=== PATIENT | female | born 1945 | race Caucasian/White ===

== ENCOUNTER → 2017-04-09 | Outpatient (CLI) | payer MEDICARE, OTHER | END | disposition home or self-care (01) | LOC: HKI 14:20 | DX: M17.0 Bilateral primary osteoarthritis of knee (principal); E78.00 Pure hypercholesterolemia, unspecified | CPT/HCPCS: G0463 ==

== ENCOUNTER → 2017-05-07 | Outpatient (CLI) | payer MEDICARE, OTHER | END | disposition home or self-care (01) | LOC: HKI 14:10 | DX: M17.11 Unilateral primary osteoarthritis, right knee (principal) ==

== ENCOUNTER → 2017-06-18 | Outpatient (CLI) | payer MEDICARE, OTHER | END | disposition home or self-care (01) | LOC: HKI 12:45 | DX: Z01.818 Encounter for other preprocedural examination (principal) | CPT/HCPCS: G0463 ==

== ENCOUNTER 2017-06-22 09:06 | Inpatient (IN) | payer MEDICARE, OTHER ==
[2017-06-22] MEDS: CEFAZOLIN 2 GM/50 ML (PMX) 50 ML IVPB (06:00)
[2017-06-22] MEDS: TRANEXAMIC ACID 1,000 MG in D5W 100 ML AT CLOSURE X1 IVPB (08:00)
[~2017-06-22 09:06] MED LIST: PROPOFOL 1000 MG INJ
[2017-06-22] MEDS: LANSOPRAZOLE 30 MG CAP PO (10:17)
[2017-06-22] MEDS: ONDANSETRON 4 MG INJ IV ×3 (10:17→22:49)
[2017-06-22] MEDS: DEXAMETHASONE 4 MG/ML 1 ML INJ IV (10:18)
[2017-06-22] MEDS: ACETAMINOPHEN 1000MG/100ML IV 100 ML IVPB (10:26)
[2017-06-22] MEDS ORDERED: ONDANSETRON 4 MG INJ (11:47)
[2017-06-22] MEDS ORDERED: PROPOFOL 20 ML (11:47)
[2017-06-22] MEDS ORDERED: NEOSTIGMINE 3 MG/3 ML SYRINGE (11:47)
[2017-06-22] MEDS ORDERED: MIDAZOLAM 1 MG/ML 2 ML INJ (11:47)
[2017-06-22] MEDS ORDERED: GLYCOPYRROLATE 0.4 MG INJ (11:47)
[2017-06-22] MEDS ORDERED: FENTAnyl 50 MCG/ML VIAL (11:47)
[2017-06-22] MEDS ORDERED: CEFAZOLIN 1 GM INJ (11:47)
[2017-06-22] MEDS ORDERED: ROCURONIUM 50 MG INJ (11:47)
[2017-06-22] MEDS ORDERED: DEXAMETHASONE 4 MG/ML 1 ML INJ (11:48)
[2017-06-22] MEDS ORDERED: morphine SULFATE/PF (10 MG/10 ML) INJ (13:25)
[2017-06-22] MEDS: TRANEXAMIC ACID 1,000 MG in D5W 100 ML AT INCISION X1 IVPB (13:57)
[2017-06-22] MEDS: BACITRACIN 50000 UNITS INJ (14:12)
[2017-06-22] MEDS: POLYMYXIN B 500000 UNIT INJ (14:15)
[2017-06-22] MEDS ORDERED: NA PHOSPHATE/BIPHOS 133 ML ENEMA PR (17:00)
[2017-06-22] MEDS ORDERED: oxyCODONE 5 MG TAB PO ×2 (17:00)
[2017-06-22] MEDS ORDERED: TRIMETHOBENZAMIDE 100 MG/ML VIAL IM (17:00)
[2017-06-22] MEDS ORDERED: ZOLPIDEM 5 MG TAB PO (17:00)
[2017-06-22] MEDS ORDERED: NALOXONE (0.4 MG/ML) INJ IV (17:00)
[2017-06-22] MEDS: CEFAZOLIN 1 GM/50 ML (PMX) 50 ML IVPB (17:22)
[2017-06-22] MEDS: ASPIRIN (EC) 325 MG TAB PO (17:23)
[2017-06-22] MEDS: DOCUSATE SODIUM 100 MG CAP PO (17:23)
[2017-06-22] MEDS: SOD CHLORIDE 0.9% 1,000 ML IV (17:27)
[2017-06-22] MEDS: DIPHENHYDRAMINE 50 MG INJ IV (20:10)
[2017-06-22] MEDS: GABAPENTIN 100 MG CAP PO (20:47)
[2017-06-22] MEDS: AMLODIPINE 5 MG TAB PO (20:48)
[2017-06-22] MEDS: CELECOXIB 100 MG CAP PO (21:00)
[2017-06-22] MEDS: EZETIMIBE 10 MG TAB PO (22:49)
[2017-06-22] MEDS: ROSUVASTATIN CALCIUM 40 MG TABLET PO (22:49)
[2017-06-23] MEDS: CEFAZOLIN 1 GM/50 ML (PMX) 50 ML IVPB ×2 (00:40→09:12)
[2017-06-23] MEDS: ONDANSETRON 4 MG INJ IV ×2 (04:40→11:00)
[2017-06-23] MEDS: SOD CHLORIDE 0.9% 1,000 ML IV ×2 (04:41→17:32)
[2017-06-23 05:32] LABS: ADD UMIC NO; UR ASCORBIC ACID NEGATIVE (NEGATIVE); UR BILIRUBIN (Dip) NEGATIVE (NEGATIVE); UR BLOOD (Dip) NEGATIVE (NEGATIVE); UR CLARITY CLEAR (CLEAR); UR COLOR STRAW (YELLOW); UR GLUCOSE (Dip) NEGATIVE (NEGATIVE); UR KETONES (Dip) TRACE mg/dL (NEGATIVE); UR LEUKOCYTE ESTERASE (Dip) NEGATIVE Leu/ul (NEGATIVE); UR NITRITE (Dip) NEGATIVE (NEGATIVE); UR SPECIFIC GRAVITY (Dip) 1.011 (1.003-1.030); UR TOTAL PROTEIN (Dip) NEGATIVE (NEGATIVE); UR UROBILINOGEN (Dip) NEGATIVE (NEGATIVE)
[2017-06-23 05:51] LABS: ADD MAN DIFF? NO
[2017-06-23 05:55] LABS: WHITE BLOOD COUNT 9.1 10^3/ul (4.8-10.8)
[2017-06-23 05:55] LABS: BASOPHILS % 0.1 % (0.0-2.0); HEMATOCRIT 35.2 % (37.0-47.0); HEMOGLOBIN 11.7 g/dl (12.0-16.0); LYMPHOCYTES # 0.6 10^3/ul (0.8-2.9); MEAN CORPUSCULAR HEMOGLOBIN 32.1 pg (29.0-33.0); MEAN CORPUSCULAR HGB CONC 33.2 g/dl (32.0-37.0); MEAN CORPUSCULAR VOLUME 96.4 fl (82.0-101.0); MEAN PLATELET VOLUME 9.6 fl (7.4-10.4); MONOCYTE # 0.5 10^3/ul (0.3-0.9); MONOCYTES % 5.4 % (0.0-11.0); NEUTROPHIL # 7.9 10^3/ul (1.6-7.5); NEUTROPHILS % 87.1 % (39.0-77.0); PLATELET COUNT 273 10^3/UL (140-415); RED BLOOD COUNT 3.65 10^6/ul (4.20-5.40); RED CELL DISTRIBUTION WIDTH 12.5 % (11.5-14.5)
[2017-06-23] MEDS: PANTOPRAZOLE (EC) 40 MG TAB PO (06:00)
[2017-06-23 06:37] LABS: ANION GAP 18 (8-16); BLOOD UREA NITROGEN 14 mg/dl (7-20); CALCIUM 8.8 mg/dl (8.4-10.2); CARBON DIOXIDE 21 mmol/L (21-31); CHLORIDE 107 mmol/L (97-110); CREATININE 0.62 mg/dl (0.44-1.00); GLUCOSE 110 mg/dl (70-220); POTASSIUM 3.8 mmol/L (3.5-5.1); SODIUM 142 mmol/L (135-144)
[2017-06-23] MEDS: FERROUS FUMARATE (SR) TAB PO ×2 (09:12→20:34)
[2017-06-23] MEDS: GABAPENTIN 100 MG CAP PO ×2 (09:12→20:36)
[2017-06-23] MEDS: DOCUSATE SODIUM 100 MG CAP PO ×2 (09:12→20:34)
[2017-06-23] MEDS: BETHANECHOL 25 MG TAB PO (09:12)
[2017-06-23] MEDS: ASPIRIN (EC) 325 MG TAB PO (09:13)
[2017-06-23] MEDS: CELECOXIB 100 MG CAP PO ×2 (09:13→20:36)
[2017-06-23] MEDS: oxyCODONE 5 MG TAB PO ×4 (15:55→23:50)
[2017-06-23] MEDS: KETOROLAC 15 MG INJ IV (17:10)
[2017-06-23] MEDS: AMLODIPINE 5 MG TAB PO (20:36)
[2017-06-23] MEDS: ROSUVASTATIN CALCIUM 40 MG TABLET PO (22:26)
[2017-06-23] MEDS: EZETIMIBE 10 MG TAB PO (22:27)
[2017-06-24] MEDS: oxyCODONE 5 MG TAB PO ×2 (04:46→08:57)
[2017-06-24 05:18] LABS: ADD MAN DIFF? NO
[2017-06-24 05:20] LABS: BASOPHILS % 0.1 % (0.0-2.0); HEMATOCRIT 32.6 % (37.0-47.0); HEMOGLOBIN 10.8 g/dl (12.0-16.0); LYMPHOCYTES # 2.3 10^3/ul (0.8-2.9); LYMPHOCYTES % 27.2 % (15.0-51.0); MEAN CORPUSCULAR HEMOGLOBIN 32.1 pg (29.0-33.0); MEAN CORPUSCULAR HGB CONC 33.1 g/dl (32.0-37.0); MEAN PLATELET VOLUME 9.3 fl (7.4-10.4); MONOCYTE # 1.3 10^3/ul (0.3-0.9); MONOCYTES % 15.3 % (0.0-11.0); NEUTROPHIL # 4.8 10^3/ul (1.6-7.5); NEUTROPHILS % 56.9 % (39.0-77.0); PLATELET COUNT 259 10^3/UL (140-415); RED BLOOD COUNT 3.36 10^6/ul (4.20-5.40); RED CELL DISTRIBUTION WIDTH 13.1 % (11.5-14.5)
[2017-06-24 05:20] LABS: WHITE BLOOD COUNT 8.4 10^3/ul (4.8-10.8)
[2017-06-24 05:41] LABS: ANION GAP 14 (8-16); BLOOD UREA NITROGEN 18 mg/dl (7-20); CALCIUM 8.6 mg/dl (8.4-10.2); CARBON DIOXIDE 28 mmol/L (21-31); CHLORIDE 107 mmol/L (97-110); CREATININE 0.72 mg/dl (0.44-1.00); GLUCOSE 110 mg/dl (70-220); POTASSIUM 4.3 mmol/L (3.5-5.1); SODIUM 145 mmol/L (135-144)
[2017-06-24] MEDS ORDERED: PANTOPRAZOLE (EC) 40 MG TAB PO (06:00)
[2017-06-24] MEDS: PANTOPRAZOLE (EC) 40 MG TAB PO (06:00)
[2017-06-24] MEDS: SOD CHLORIDE 0.9% 1,000 ML IV (06:02)
[2017-06-24] MEDS: FERROUS FUMARATE (SR) TAB PO (08:58)
[2017-06-24] MEDS: ASPIRIN (EC) 325 MG TAB PO (08:58)
[2017-06-24] MEDS: CELECOXIB 100 MG CAP PO (08:58)
[2017-06-24] MEDS: MAGNESIUM HYDROXIDE 30ML CUP PO (08:58)
[2017-06-24] MEDS: DOCUSATE SODIUM 100 MG CAP PO (08:58)
[2017-06-24] MEDS: GABAPENTIN 100 MG CAP PO (08:58)
[2017-06-24] MEDS: KETOROLAC 15 MG INJ IV (08:59)
[2017-06-24] MEDS: HYDROCODONE/APAP (10/325) TAB PO ×2 (11:35→17:01)
[2017-06-24] MEDS: BISACODYL 10 MG SUPP PR (12:04)
[2017-06-24] MEDS: SENNA/DOCUSATE NA (8.6MG/50MG) TAB PO (14:49)
== END 2017-06-24 18:10 | disposition home health service (06) | DRG 462 ==
LOC: REC 09:06 → MS1 18:05
PROC: 0SRD0L9 Replacement of Left Knee Joint with Medial Unicondylar Synthetic Substitute, Cemented, Open Approach (ICD-10-PCS; principal; 2017-06-22 12:30)
PROC: 0SRC0L9 Replacement of Right Knee Joint with Medial Unicondylar Synthetic Substitute, Cemented, Open Approach (ICD-10-PCS; 2017-06-22 12:30)
DX: M17.0 Bilateral primary osteoarthritis of knee (principal); K51.90 Ulcerative colitis, unspecified, without complications; I10 Essential (primary) hypertension; E78.5 Hyperlipidemia, unspecified; K21.9 Gastro-esophageal reflux disease without esophagitis; E66.9 Obesity, unspecified; Z68.23 Body mass index [BMI] 23.0-23.9, adult
CPT/HCPCS: 80048; 81003; 85025; 86850; 86900; 86901; 87081; 87086; 88304; 88311; 97110; 97116; 97162; 97165; 97530; 97535

== ENCOUNTER → 2017-07-09 | Outpatient (CLI) | payer MEDICARE, OTHER | END | disposition home or self-care (01) | LOC: HKI 14:33 | DX: Z09 Encounter for follow-up examination after completed treatment for conditions other than malignant neoplasm (principal); M25.561 Pain in right knee; R22.43 Localized swelling, mass and lump, lower limb, bilateral | CPT/HCPCS: 73565 ==

== ENCOUNTER → 2017-08-09 | Outpatient (CLI) | payer MEDICARE, OTHER | END | disposition home or self-care (01) | LOC: HKI 13:26 | DX: Z09 Encounter for follow-up examination after completed treatment for conditions other than malignant neoplasm (principal); Z96.653 Presence of artificial knee joint, bilateral | CPT/HCPCS: 73565 ==

== ENCOUNTER → 2017-09-27 | Outpatient (CLI) | payer MEDICARE, OTHER | END | disposition home or self-care (01) | LOC: HKI 10:06 | DX: Z47.1 Aftercare following joint replacement surgery (principal); Z96.653 Presence of artificial knee joint, bilateral | CPT/HCPCS: 73565 ==

== ENCOUNTER → 2018-01-03 | Outpatient (CLI) | payer MEDICARE, OTHER | END | disposition home or self-care (01) | LOC: HKI 10:17 | DX: Z47.1 Aftercare following joint replacement surgery (principal); Z96.653 Presence of artificial knee joint, bilateral | CPT/HCPCS: 73565 ==

== ENCOUNTER → 2018-07-18 | Outpatient (CLI) | payer MEDICARE, OTHER | END | disposition home or self-care (01) | LOC: HKI 10:21 | DX: M25.562 Pain in left knee (principal); M25.561 Pain in right knee; I10 Essential (primary) hypertension; E03.9 Hypothyroidism, unspecified | CPT/HCPCS: 73562; 73562-50 ==